=== PATIENT | male | born 1990 | race Two or more races ===

== ENCOUNTER 2023-10-20 10:58 | Emergency (ER) | payer MEDICAID ==
[2023-10-20] MEDS: IV NS 0.9% 1,000 ML BAG IV ONE (11:30)
[2023-10-20 12:26] LABS: BASOPHILS # (AUTO) 0.1 K/uL (0.0-0.2); BASOPHILS % (AUTO) 0.8 % (0.0-2.0); EOSINOPHILS % (AUTO) 0.5 % (0.0-6.0); HEMATOCRIT 47 % (39-51); HEMOGLOBIN 15.7 g/dL (13.5-17.5); LYMPHOCYTES # (AUTO) 2.1 K/uL (0.8-4.8); LYMPHOCYTES % (AUTO) 31.6 % (20.0-44.0); MEAN CORPUSCULAR HEMOGLOBIN 28 PG (26.0-33.0); MEAN CORPUSCULAR HGB CONC 33 g/dl (31.0-36.0); MEAN CORPUSCULAR VOLUME 83 fL (80-96); MONOCYTES # (AUTO) 0.4 K/uL (0.1-1.30); MONOCYTES % (AUTO) 5.4 % (2.0-12.0); NEUTROPHILS % (AUTO) 61.7 % (43.0-81.0); PLATELET COUNT (AUTO) 299 K/uL (150-450); RED CELL DISTRIBUTION WIDTH 13.3 % (11.5-15.0); WHITE BLOOD COUNT (AUTO) 6.5 K/uL (4.3-11.0)
[2023-10-20 12:40] LABS: ALBUMIN 4.2 g/dL (3.4-5.0); BILIRUBIN,DIRECT 0.1 mg/dL (0.0-0.2); BILIRUBIN,TOTAL 0.5 mg/dL (0.2-1.0); CALCIUM, SERUM 9.2 mg/dL (8.5-10.1); CREATININE 0.8 mg/dL (0.6-1.3); POTASSIUM 4.5 mmol/L (3.5-5.1); TOTAL PROTEIN, SERUM 8.2 g/dL (6.4-8.2)
[2023-10-20] MEDS ORDERED: ONDANSETRON HCL/PF 4 MG/2 ML VIAL ONE (13:28)
[2023-10-20] MEDS: ONDANSETRON HCL/PF 4 MG/2 ML VIAL IV ONE (13:32)
[2023-10-20] MEDS ORDERED: IBUP-1955 PO (14:19)
[2023-10-20] MEDS ORDERED: ONDA4TAB5 PO (14:19)
[2023-10-20 15:21] VITALS: BP 118/66; O2SAT 97
== END 2023-10-20 15:22 | disposition home or self-care (01) ==
LOC: ER 10:58
DX: R42 Dizziness and giddiness (principal); R11.2 Nausea with vomiting, unspecified; R19.7 Diarrhea, unspecified; F43.89 Other reactions to severe stress
CPT/HCPCS: 99285; 96374; 71045; 96361 ×2; 93005; 85025; 80048; 80076; 36415; 82962; J2405; J7030